=== PATIENT | female | born 1945 | race Caucasian/White ===

== ENCOUNTER → 2025-03-13 | Outpatient (CLI) | payer MEDICARE, OTHER, SELFPAY ==
--- NOTE | 2025-03-13 15:00 | XR_ITS ---
Examination: CT brain head without contrast. 2-D sagittal coronal reconstructions Date and time of exam:March 13, 2025 1613 hours Comparison August 12, 2023 INDICATIONS: Increasing memory loss one year CTDI: vol (mGy):44.8. DLP: (mGycm):883. Technique: Multiple CT axial sections of the brain have been obtained, 5 mm slice thickness. Contrast has not been administered. 2-D sagittal, coronal reconstructions have been obtained Low dose protocols were performed. One or more of the following dose reduction techniques were used; automated exposure control, adjustment of the mA and/or KV according to patient size, use of iterative reconstruction technique. Findings: No significant ventricular enlargement. Intra-axial or extra-axial hemorrhage density is not seen. No mass effect or midline shift Basal cisterns are not remarkable. Fourth ventricle is midline. Cranial vault intact. Impression: Negative for acute hemorrhage, mass effect or midline shift As clinically warranted, brain MRI follow-up would best assess for chronic multi-infarct dementia pattern
== END | disposition home or self-care (01) ==
LOC: SCAT 14:46
PROVIDERS: PCP Nurse Practitioner Family; Referring Provider Nurse Practitioner Family; Visit Provider Nurse Practitioner Family
DX: R41.81 Age-related cognitive decline (principal)
CPT/HCPCS: 70450

== ENCOUNTER → 2025-03-29 | Outpatient (CLI) | payer MEDICARE, OTHER, SELFPAY ==
--- NOTE | 2025-03-29 16:23 | XR_ITS ---
Examination: PA lateral chest 2 views TECHNIQUE: Upright PA lateral chest 2 views Date and time: March 29, 2025, 1637 hours, comparison February 14, 2022. INDICATIONS: Preop. FINDINGS: Normal heart size. Cardiac leads stable position. No interval pneumonia or pulmonary edema. Moderate osteopenia IMPRESSION: No active disease.
== END | disposition home or self-care (01) ==
PROVIDERS: PCP Family Medicine; Referring Provider Nurse Practitioner Family; Visit Provider Nurse Practitioner Family
DX: Z01.812 Encounter for preprocedural laboratory examination (principal)
CPT/HCPCS: 71046

== ENCOUNTER 2025-05-23 23:13 | Emergency (ER) | payer MEDICARE, OTHER, SELFPAY ==
[2025-05-23 23:14] VITALS: BMI 27.3
--- NOTE | 2025-05-23 23:26 | XR_ITS ---
Examination: Tibia-Fibula, right, 2 views Technique: Tibia-fibula AP lateral 2 views Date and time of exam: May 23, 2025, 11:22 p.m. INDICATIONS: Patient fell today with injury to the lower leg, lower leg pain. FINDINGS: Prominent osteopenia. No fracture or dislocation IMPRESSION: No fracture or dislocation
--- NOTE | 2025-05-23 23:26 | XR_ITS ---
Examination: Foot, right, 3 views Technique: AP, oblique, lateral views foot, 3 views Date and time of exam: May 23, 2025 11:22 p.m. INDICATIONS: Patient fell today with injury to the foot, foot pain. FINDINGS: No acute fracture No dislocation No foreign body IMPRESSION: No acute fracture
--- NOTE | 2025-05-23 23:26 | XR_ITS ---
Examination: Knee bilateral, 4 views Technique: Bilateral AP knees 2 views Right lateral knee left lateral knee 2 views total 4 views Date and time of exam: May 23, 2025, 11:22 p.m. INDICATIONS: Patient fell today with injury to the knees, knee pain FINDINGS: Severe osteopenia Advanced narrowing medial joint space right knee No acute fracture No dislocation IMPRESSION: No acute fracture
--- NOTE | 2025-05-23 23:26 | XR_ITS ---
EXAMINATION: Ankle, right 3 views. Technique: Ankle AP, oblique, lateral 3 views Date and time of exam: May 23, 2025 11:22 p.m. INDICATIONS: Patient fell today with injury to the ankle, ankle pain. FINDINGS: No acute fracture No dislocation No foreign body IMPRESSION: No acute fracture
--- NOTE | 2025-05-23 23:27 | PD.EDLOWEX ---
Lower Extremity Injury RME/HPI General Chief Complaint: Fall Stated Complaint: TRIPPED AND FELL, RIGHT KNEE/FOOT PAIN Time Seen by Provider: 05/23/25 23:26 Arrival date/time: 05/23/25 23:13 79F with history of hypothyroidism presents to ED with RLE from knee down, as well as L knee pain after trip and fall forward. Patient denies head/neck pain/injury. Limitations: no limitations Related Data Home Medications ?Medication ?Instructions ?Recorded ?Confirmed cetirizine 10 mg tablet (Zyrtec) 10 mg PO QDAY PRN Allergy Symptoms 07/21/22 12/22/22 duloxetine 30 mg capsule,delayed 30 mg PO DAILY 07/21/22 12/22/22 release ergocalciferol (vitamin D2) 1,250 50,000 unit PO QWEEK 07/21/22 12/22/22 mcg (50,000 unit) capsule gabapentin 300 mg capsule 300 mg PO TID 07/21/22 12/22/22 hyoscyamine sulfate 0.125 mg 0.125 mg PO DAILY PRN 07/21/22 12/22/22 disintegrating tablet Gastrointestinal Spasms Or Cramping levothyroxine 100 mcg tablet 100 mcg PO DAILY 07/21/22 12/22/22 meloxicam 15 mg tablet 15 mg PO QDAY 07/21/22 12/22/22 metoprolol succinate 25 mg 25 mg PO DAILY 07/21/22 12/22/22 tablet,extended release 24 hr rizatriptan 10 mg disintegrating 10 mg PO DAILY PRN Migraine 07/21/22 12/22/22 tablet Headache Allergies Allergy/AdvReac Type Severity Reaction Status Date / Time adhesive tape Allergy Severe Hives Verified 12/22/22 15:40 erythromycin base Allergy Severe Gastrointestinal Verified 12/22/22 15:40 Upset latex Allergy Severe HIVES Verified 12/22/22 15:40 Penicillins Allergy Intermediate Swelling Verified 12/22/22 15:40 of Lip/Tongue/Throat Review of Systems Review of Systems Systems Reviewed: All systems reviewed, normal except as documented Musculoskeletal Musculoskeletal: Reports as per HPI and Reports arthralgias Past Medical History Past Medical History NEUROLOGIC: Positive Neurological Disorders and Migraine; Negative Seizures CARDIAC: Positive Cardiac Disorders (ATRIAL TACHYCARDIA WITH SICK SINUS SYNDROME); Negative Congestive Heart Failure RESPIRATORY: Positive Bronchitis; Negative Chronic Obstructive Pulmonary Disease (COPD) GASTROINTESTINAL: Positive Gastrointestinal Disorders, Diverticulitis, Hiatal Hernia, Hemorrhoids and Gastroesophageal Reflux Disease GENITOURINARY: Negative Genitourinary Disorders or Renal Disease MUSCULOSKELETAL: Positive Musculoskeletal Disorders, Arthritis and Osteoporosis ENDOCRINE: Negative Diabetes Mellitus Type 1 or Diabetes Mellitus Type 2 OTHER HISTORY: Positive Blood Transfusions; Negative Blood Transfusion Reaction, Anesthesia Reactions or Cancer Surgical History SURGICAL: Positive Pacemaker, Tonsillectomy, Gastric Bypass Surgery (GASTRIC SLEEVE) and Bowel Surgery (COLON RESECTION) Social History SMOKING STATUS: Never smoker ED Exam General Limitations: Present no limitations General appearance: Present alert and in no apparent distress Head Head exam: Present atraumatic Neck Neck exam: Present normal inspection, full ROM and trachea midline Chest Chest inspection: Present normal inspection and symmetric chest wall rise Extremities Exam Extremities exam: Present full ROM Expanded Lower Extremity Exam Knee exam: Present full ROM (bilateral) and tenderness Lower leg exam: Present full ROM (R) and tenderness Ankle exam: Present full ROM and tenderness Foot/toe exam: Present full ROM and tenderness Neurological Exam Neurological exam: Present alert, oriented X3 and CN II-XII intact Psychiatric Psychiatric exam: Present normal affect and normal mood Skin Skin exam: Present warm, dry, intact and normal color Course Quality Measures none Orders Category Date Time Status XR ankle comp RT min 3V Stat Exams 05/23/25 23:26 Completed XR foot comp RT min 3V Stat Exams 05/23/25 23:26 Completed XR hip RT w pelvis 2-3V Stat Exams 05/23/25 23:28 Completed XR knee BI 3V Stat Exams 05/23/25 23:26 Completed XR tibia fibula RT 2V Stat Exams 05/23/25 23:26 Completed Vital Signs Vital signs: Vital Signs Temperature 98.2 F 05/23/25 23:33 Pulse Rate 79 05/23/25 23:33 Respiratory Rate 18 05/23/25 23:33 Blood Pressure 133/69 H 05/23/25 23:33 Pulse Oximetry (%) 96 05/23/25 23:33 Oxygen Delivery Method Room Air 05/23/25 23:33 O2 at 96% on RA and WNLs Extremity Injury, Lower MDM Narrative MDM Narrative:: 79F with history of hypothyroidism presents to ED with RLE from knee down, as well as L knee pain after trip and fall forward. Patient denies head/neck pain/injury. Physical exam reveals bilateral knee tenderness and swelling. Some RLE generalized tenderness. ROM intact. No hip tenderness. Gait intact with walker. Patient is afebrile, calm, and alert. XR no fx. Given GABO and grief counsellor. Patient data External records reviewed:: [facility] previous records Clinical information provided by:: patient Social determinants that could affect healthcare access:: none Patient has the following chronic illnesses:: hypothyroidism How is presenting disease/condition affected by chronic disease/condition?: uneffected by Evaluation data The following diagnostics were reviewed and interpreted by me:: radiology exam(s) Lab and/or radiology exams considered but not ordered:: ordered Interpretation Summary: above Medications / Prescriptions Medications or Prescriptions considered but not ordered:: not ordered Medication administrations:: n/a Consultations Consultation(s) initiated? (list below): No Diagnosis Extremity Injury, Lower Differential Diagnosis: ankle sprain and strain, acute internal derangement of knee, fracture of femur, fracture of hip, puncture wound of foot, fracture of toe and ankle fracture Most likely diagnosis given after review of the tests above:: soft tissue contusion Admission Indicated Admission indicated?: not indicated Admission Request Was there a request for admission?: No Disposition Plan Disposition Plan: Discharge Discharge Attestation Discharge Attestation: The patient and all family members were given an opportunity to ask questions and understood the discharge instructions. Discharge instructions specifically effects, indications for sooner follow up or return to the emergency department, and the expected course of current diagnosis. Patient condition: Stable Discharge Plan Plan Patient Disposition: HOME (Self Care) Discharge Disposition comment: Stable Prescriptions/Referrals Prescriptions/Med Rec: No Action levothyroxine 100 mcg tablet 100 mcg PO DAILY Patient Comments: TAKE 1 TABLET BY MOUTH EVERY DAY IN THE MORNING ON EMPTY STOMACH 90 DAYS metoprolol succinate 25 mg tablet extended release 24 hr 25 mg PO DAILY Patient Comments: TAKE 1 TABLET BY MOUTH EVERY DAY FOR CARDIAC cetirizine [Zyrtec] 10 mg Tablet 10 mg PO QDAY PRN (Reason: Allergy Symptoms) meloxicam 15 mg Tablet 15 mg PO QDAY rizatriptan 10 mg tablet,disintegrating 10 mg PO DAILY PRN (Reason: Migraine Headache) Patient Comments: TAKE 1 TABLET BY MOUTH NEEDED FOR MIGRAINE. MAY REPEAT IN 2 HOURS IF NEEDED hyoscyamine sulfate 0.125 mg tablet,disintegrating 0.125 mg PO DAILY PRN (Reason: Gastrointestinal Spasms Or Cramping) Patient Comments: DISSOLVE 1 TABLET ON THE TONGUE EVERY DAY NEEDED FOR IBS SPASMS gabapentin 300 mg capsule 300 mg PO TID Patient Comments: TAKE 2 CAPSULES BY MOUTH 6 TIMES A DAY ergocalciferol (vitamin D2) 1,250 mcg (50,000 unit) capsule 50,000 unit PO QWEEK Patient Comments: TAKE 1 CAPSULE BY MOUTH ONE TIME PER WEEK duloxetine 30 mg capsule,delayed release(DR/EC) 30 mg PO DAILY Patient Comments: TAKE 1 CAPSULE BY MOUTH ONCE A DAY Problem List Clinical Impression: Fall, Contusion of soft tissue Patient/Caregiver Discharge Instructions Education Materials: ED Soft Tissue Contusion Additional Instructions: Please follow-up with PCP within 24-48 hours and return immediately if symptoms worsen. If problem persists, recommend outpatient PT and/or MRI follow-up. In the meantime, rest, use ice/heat, and/or compression. Print Language: Malay Stand Alone Forms: [employer] Award Info., Patient Portal Info Letter PA/EARLY CHILDHOOD EDUCATION SPECIALIST Supervising Physician PA/EARLY CHILDHOOD EDUCATION SPECIALIST Supervising Physician: Dr. Cai
--- NOTE | 2025-05-23 23:28 | XR_ITS ---
Examination: Right hip AP, lateral, AP pelvis 3 views Technique: Hip AP lateral, AP pelvis, 3 views Exam date and time: May 22, 2025, 11:22 p.m. INDICATIONS: Patient fell today with injury to the right ear, right ear pain. FINDINGS: Total right hip arthroplasty. Satisfactory alignment. No loosening of the prosthetic components. Left hip bones of the pelvis intact, old fracture left inferior pubic ramus IMPRESSION: No acute hip or pelvic fracture.
[2025-05-23 23:33] VITALS: BP 133/69; PULSE 79; RESP 18; TEMP 36.8; O2SAT 96
== END 2025-05-24 00:10 | disposition home or self-care (01) ==
LOC: SERX 05-24 00:28
PROVIDERS: Emergency Provider Emergency Medicine; PCP Family Medicine
DX: S80.01XA Contusion of right knee, initial encounter (principal); W01.0XXA Fall on same level from slipping, tripping and stumbling without subsequent striking against object, initial encounter; E03.9 Hypothyroidism, unspecified
CPT/HCPCS: 73502; 73562; 73590; 73610; 73630; 99281